=== PATIENT | female | born 1970 | race Two or more races ===

== ENCOUNTER 2018-08-20 08:04 | Outpatient (CLI) | payer OTHER | END 2018-08-20 08:16 | disposition home or self-care (01) | LOC: SONOGRAMA 08:04 | DX: R10.84 Generalized abdominal pain (principal) ==

== ENCOUNTER → 2018-11-12 | Outpatient (CLI) | payer OTHER | END | disposition home or self-care (01) | LOC: MAMO-SONO 11-07 09:30 → SONOGRAMA 09:15 → MAMO-SONO 09:15 | DX: M60.11 Interstitial myositis, shoulder (principal) ==

== ENCOUNTER 2021-02-16 15:04 | Outpatient (CLI) | payer OTHER | END 2021-02-16 15:13 | disposition home or self-care (01) | LOC: RAD 15:04 | PROVIDERS: ATTEND Physical Medicine & Rehabilitation | DX: M77.11 Lateral epicondylitis, right elbow (principal); M77.12 Lateral epicondylitis, left elbow; M54.5 Low back pain; M54.2 Cervicalgia ==

== ENCOUNTER 2021-03-27 08:00 | Outpatient (CLI) | payer OTHER | END 2021-03-27 08:30 | disposition home or self-care (01) | LOC: PPH VACUNA 08:00 | PROVIDERS: ATTEND Emergency Medicine Pediatric Emergency Medicine | DX: Z23 Encounter for immunization (principal) ==

== ENCOUNTER 2021-06-14 09:35 | Outpatient (CLI) | payer OTHER | END 2021-06-14 09:43 | disposition home or self-care (01) | LOC: SONOGRAMA 09:35 | PROVIDERS: ATTEND Physical Medicine & Rehabilitation | DX: M25.522 Pain in left elbow (principal) ==